=== PATIENT | female | born 1960 | race Caucasian/White ===

== ENCOUNTER 2016-12-01 14:24 | Outpatient (CLI) | payer OTHER ==
--- NOTE | 2016-12-01 15:20 | DIAGNOSTIC IMAGING REPORT ---
PROCEDURE: XR LUMBAR SPINE 5 VIEWS INDICATION: DEGENERATION OF LUMBAR INTERVERTEBRAL DISC TECHNIQUE: Five views. COMPARISON: None. FINDINGS: There is spondylosis and a grade 1 spondylolisthesis at L4-5. IMPRESSION: 1. spondylosis and grade 1 spondylolisthesis at L4-5.
== END 2016-12-01 23:00 ==
LOC: XR SRH 14:24
DX: M47.816 Spondylosis without myelopathy or radiculopathy, lumbar region (principal); M43.16 Spondylolisthesis, lumbar region

== ENCOUNTER 2016-12-26 13:32 | Outpatient (CLI) | payer OTHER ==
--- NOTE | 2016-12-26 15:28 | DIAGNOSTIC IMAGING REPORT ---
PROCEDURE: MR LUMBAR SPINE W/O CONTRAST INDICATION: SPONDYLOLISTHESIS,LUMBAR TECHNIQUE: Noncontrast T1, T2, and STIR sagittal images. T1 and T2 axial images. COMPARISON: Lumbar spine x-ray 12/01/2016. FINDINGS: Grade 1 L4-5 anterolisthesis. No fracture or suspicious osseous lesion. Normal conus. Paraspinal soft tissues are unremarkable. T12-1: Normal disc. There is a 6 mm right T12 nerve root meningocele. L1-2: Normal appearance. L2-3: Normal appearance. L3-4: Small right L3-4 foraminal disc bulge and facet arthropathy but there is no foraminal or spinal stenosis. L4-5: Grade 1 anterolisthesis with a small broad-based disc bulge. Moderate facet arthropathy but no foraminal stenosis. No spinal stenosis. L5-S1: Normal appearance. IMPRESSION: 1. Right T12 nerve root meningocele 2. Small right L3-4 foraminal disc bulge 3. Grade 1 L4-5 anterolisthesis with moderate facet arthropathy
== END 2016-12-26 23:00 ==
LOC: MRI SRH 13:32
DX: M43.16 Spondylolisthesis, lumbar region (principal); Q05.6 Thoracic spina bifida without hydrocephalus; M51.26 Other intervertebral disc displacement, lumbar region